=== PATIENT | male | born 1955 | race Hispanic/Latino ===

== ENCOUNTER 2017-11-08 22:43 | Inpatient (IN) | payer OTHER, MEDICARE ==
[~2017-11-08] VITALS: Ht 160 cm; Wt 70.8 kg
[~2017-11-08 22:43] MED LIST: AMLODIPINE BESY10 M1 PO; BACTRIM DS 8001 TAB PO; BENTYL20 MG PO; CLOPIDOGREL75 M1 PO; COLCHICINE0.6 M2 PO; FLOMAX0.4 M1 PO; FLU VACCINE 0.0.5 ML IM; GEMFIBROZIL600 M1 PO; GLIPIZIDE10 M2 PO; HYDROCHLOROTHIA25 M1 PO; JANUVIA 100MG100 MG PO; KEFLEX500 M1 PO; LABETALOL HCL300 M1 PO; LANTUS SOL100 UNIT/1 SC; LIPITOR20 M2 PO; PANTOPRAZOLE SO40 M1 PO; PREDNISONE2.5 M1 PO; PROGRAF0.5 MG PO; RAPAMUNE1 MG PO; ZOFRAN ODT4 MG SL
[2017-11-08 23:13] LABS: ABSOLUTE BASOPHIL COUNT 0 /CUMM (0.0-0.2); ABSOLUTE EOSINOPHIL COUNT 0.2 /CUMM (0.0-0.7); ABSOLUTE GRANULOCYTE CT 4.6 /CUMM (1.4-6.5); ABSOLUTE LYMPH COUNT 2.7 /CUMM (1.2-3.4); ABSOLUTE MONOCYTE COUNT 0.9 /CUMM (0.10-0.60); BASOPHIL % 0.3 % (0.0-2.0); EOSINOPHIL % 2.3 % (0-5); GRANULOCYTE % 54.7 % (42.2-75.2); HEMATOCRIT 35.2 % (42-52); MEAN CORPUSCULAR HGB 25.9 PG (27.0-31.0); MEAN CORPUSCULAR HGB CONC 32.6 G/DL (33.0-37.0); MEAN CORPUSCULAR VOLUME 79.5 FL (80.0-94.0); MEAN PLATELET VOLUME 10.5 FL (7.4-10.4); PLATELET COUNT 213 /CUMM (130-400); RBC DISTRIBUTION WIDTH 15.8 % (11.5-14.5); RED BLOOD CELL CT 4.43 /CUMM (4.70-6.10); WHITE BLOOD CELL COUNT 8.5 /CUMM (4.8-10.8)
--- NOTE | 2017-11-08 23:18 | ED CARDIAC/CP/PALPITATIONS ---
History of Present Illness General Chief Complaint: Chest Pain Stated Complaint: CP Source: patient, family, old records Exam Limitations: no limitations Vital Signs & Intake/Output Vital Signs & Intake/Output Vital Signs Date Time Temp Pulse Resp B/P B/P Pulse O2 O2 Flow FiO2 Mean Ox Delivery Rate 11/08 2349 64 16 162/80 97 Room Air 11/08 2325 148/84 11/08 2258 98 Room Air 11/08 2255 96.2 67 18 176/87 97 Room Air ED Intake and Output 11/09 0000 11/08 1200 Intake Total Output Total Balance Patient 150 lb Weight Allergies Coded Allergies: Penicillins (UNKNOWN 01/08/16) Reconcile Medications Amlodipine Besylate (Amlodipine) 10 MG TABLET 1 TAB PO DAILY BP (Reported) Atorvastatin Calcium (Lipitor) 20 MG TABLET 1 TAB PO DAILY CHOLESTEROL ( Reported) Cephalexin (Keflex) 500 MG CAPSULE 1 CAP PO TID CELLULITIS CLOPIDOGREL BISULFATE (Clopidogrel) 75 MG TABLET 1 TAB PO DAILY BLOOD THINNER (Reported) Colchicine 0.6 MG TABLET 1 TAB PO BID GOUT Gemfibrozil 600 MG TABLET 1 TAB PO DAILY CHOLESTEROL (Reported) Glipizide 10 MG TABLET 1 TAB PO QPM DIABETES (Reported) Hydrochlorothiazide (Hydrodiuril 25 MG Tab) 25 MG TABLET 1 TAB PO DAILY BP ( Reported) Insulin Glargine,Hum.rec.anlog (Lantus Solostar) 100 UNIT/1 ML INSULN.PEN 14 U SC DAILY DIABETES (Reported) Insulin Glargine,Hum.rec.anlog (Lantus Solostar) 100 UNIT/1 ML INSULN.PEN 16 UNIT SC QPM DIABETES (Reported) Labetalol Hydrochloride 300 MG TAB 1 TAB PO BID BP (Reported) Pantoprazole Sodium 40 MG TABLET.DR 1 TAB PO DAILY ACID REFLUX (Reported) Prednisone 2.5 MG TABLET 1 TAB PO DAILY KIDNEY TRANSPLANT (Reported) Sirolimus (Rapamune 1MG) 1 MG TABLET 1 TAB PO DAILY KIDNEY TRANSPLANT ( Reported) Sitagliptin Phosphate (Januvia) 100 MG TABLET 1 TAB PO DAILY DIABETES ( Reported) Tacrolimus 0.5 MG CAPSULE 1 TAB PO BID KIDNEY (Reported) TAMSULOSIN HCL (Tamsulosin Hydrochloride) 0.4 MG CAP.ER.24H 1 CAP PO DAILY PROSTATE (Reported) Triage Note: PT TO TRIAGE C/O L SIDED NONRADIATING CP SINCE THIS AFTERNOON, INTERMITTENT IN SEVERITY. DENIES SOB/ DIAPHORESIS. PT HX KIDNEY TRANSPLANT (2000) AND STENT PLACEMENT (2008). PT TO ROOM 4, PLACED ON VAMP WETTER. Triage Nurses Notes Reviewed? yes Onset: Evening Duration: hour(s):, constant, continues in ED Timing: recent history Quality/Severity: moderate, severe, tightness Location: substernal Radiation: arms Activities at Onset: rest Prior Chest Pain/Card Workup: cardiac cath, echocardiography, heart attack, stress test Nitro Today/Relief: 0.4 mg x 1, provided by ED Aspirin Today: 325 mg x 1, provided by ED HPI: Several hours prior to admission patient complains of constant moderate to severe left-sided tight chest pain radiating to his left arm similar to previous NM discomfort. He denies fever chills nausea vomiting diarrhea abdominal pain shortness of breath headache dysuria rash bleeding. Past History Travel History Traveled to [place] past 21 day No Medical History Any Pertinent Medical History? see below for history Neurological: NONE EENT: NONE Cardiovascular: hypertension, hyperlipidemia Respiratory: NONE Gastrointestinal: NONE Hepatic: NONE Renal: KIDNEY TRANSPLANT Musculoskeletal: NONE Psychiatric: NONE Endocrine: diabetes Blood Disorders: NONE Cancer(s): NONE BLOOD BANK LABORATORY TECHNOLOGIST/Reproductive: NONE Surgical History Surgical History: non-contributory Psychosocial History What is your primary language Emir[place] Tobacco Use: Never used Family History Hx Contributory? No Review of Systems Review of Systems Constitutional: Reports: no symptoms. EENTM: Reports: no symptoms. Respiratory: Reports: no symptoms. Cardiovascular: Reports: see HPI, chest pain. GI: Reports: no symptoms. Genitourinary: Reports: no symptoms. Musculoskeletal: Reports: no symptoms. Skin: Reports: no symptoms. Neurological/Psychological: Reports: no symptoms. Hematologic/Endocrine: Reports: no symptoms. Immunologic/Allergic: Reports: no symptoms. All Other Systems: Reviewed and Negative Physical Exam Physical Exam General Appearance: well developed/nourished, alert, awake, anxious, mild distress, obese Head: atraumatic, normal appearance Eyes: Bilateral: normal appearance, PERRL, EOMI. Ears, Nose, Throat: normal pharynx, normal ENT inspection, hearing grossly normal Neck: normal inspection, supple, full range of motion, no midline tenderness Respiratory: normal breath sounds, chest non-tender, no respiratory distress, quiet respiration, lungs clear Cardiovascular: regular rate/rhythm, normal peripheral pulses, norml femoral pulses equa Peripheral Pulses: 4+ carotid (R), 4+ carotid (L) Gastrointestinal: normal bowel sounds, soft, non-tender, no organomegaly Back: normal inspection, normal range of motion Extremities: normal inspection, normal capillary refill, pedal edema Neurologic/Psych: no motor/sensory deficits, awake, alert, oriented x 3, normal gait, normal mood/affect, hand turner II-XII nml as tested Reflexes: 2+: bicep (R), bicep (L). Skin: intact, normal color, warm/dry Lymphatic: no anterior cervical javier Core Measures ACS in differential dx? Yes CVA/TIA Diagnosis No Sepsis Present: No Sepsis Focused Exam Completed? No Progress Differential Diagnosis: AMI, costochondritis, hyperkalemia, pneumonia Plan of Care: Orders Procedure Date/time Status Consistent Carbohydrate 2 11/09 B Active OXYGEN SETUP (GEN) 11/09 12 Active Saline Lock 11/09 12 Active Admit to inpatient 11/09 12 Active Vital Signs 11/09 12 Active Activity/Ambulation 11/09 12 Active Code Status 11/09 12 Active EKG 11/09 0002 Active Add-on Test (ER Only) 11/08 2316 Active MAGNESIUM 11/08 2305 Active B-TYPE NATRIURETIC PEP (BNP) 11/08 230 Active TROPONIN LEVEL 11/08 230 Active COMPREHENSIVE METABOLIC PANEL 11/08 230 Active CBC WITHOUT DIFFERENTIAL 11/09 2303 Complete EKG 11/08 2244 Active Laboratory Tests 11/08/17 2305: Anion Gap 12, Estimated GFR 47 L, BUN/Creatinine Ratio 23.3, Glucose 301 H, Calcium 9.1, Magnesium 1.3 L, Total Bilirubin 0.5, AST 28, ALT 22, Alkaline Phosphatase 96, Troponin I 0.02, Bmn-F-Ojuplelqtzt Pept Pending, Total Protein 6.8, Albumin 4.0, Globulin 2.8, Albumin/Globulin Ratio 1.4, CBC w Diff NO MAN DIFF REQ, RBC 4.43 L, MCV 79.5 L, MCH 25.9 L, MCHC 32.6 L, RDW 15.8 H, MPV 10.5 H, Gran % 54.7, Lymphocytes % 32.0, Monocytes % 10.7 H, Eosinophils % 2.3 , Basophils % 0.3, Absolute Granulocytes 4.6, Absolute Lymphocytes 2.7, Absolute Monocytes 0.9 H, Absolute Eosinophils 0.2, Absolute Basophils 0 Diagnostic Imaging: Viewed by Me: Radiology Read. Discussed w/RAD: Radiology Read. Initial ED EKG: normal axis, normal intervals, normal p-waves, normal QRS complex, normal sinus rhythm, nonspecific ST T wave chg, ST depression (V 4-6) Prior EKG: changed Repeat EKG: unchanged Rhythm Strip: normal sinus rhythm Departure Departure Time of Disposition: 16 Disposition: STILL A PATIENT Condition: Fair Clinical Impression Primary Impression: Chest pain syndrome Secondary Impressions: Chronic renal insufficiency, Hypokalemia, Hypomagnesemia Referrals: Larissa GATES,Norberto León (PCP/Family) Departure Forms: Customer Survey General Discharge Information Admission Note Spoke With: Yuliet Taveras MD Documentation of Exam: Documentation of any treatments & extenuating circumstances including Concerns Regarding Discharge (functional status, medication knowledge or non-compliance, living conditions, etc.) that warrant an admission rather than observation: Serial EKG serial lab exam medication adjustment cardiac monitoring cardiology evaluation continuing care discharge planning Critical Care Note Critical Care Note Critical Care Time: 30-74 min (35)
--- NOTE | 2017-11-08 23:45 | RADIOLOGY REPORT ---
EXAMINATION: XR PORTABLE CHEST CLINICAL INFORMATION: Chest pain COMPARISON: 07/14/2015 TECHNIQUE: Portable frontal view of the chest was obtained. FINDINGS: Cardiac leads overlie the chest. The patient is rotated to the left. The lungs are well expanded. There is no focal consolidation, edema, or effusion. No pneumothorax. The cardiomediastinal silhouette is within normal limits of size. No acute osseous abnormality. IMPRESSION: No acute pulmonary findings.
[2017-11-09] MEDS ORDERED: TRADJENTA5 M1 PO (01:35)
[2017-11-09] MEDS ORDERED: LEVEMIR100 UNIT/1 SC (01:36)
--- NOTE | 2017-11-09 01:43 | History & Physical ---
Collins GATES,Ramon 11/09/17 0142: General Information and HPI MD Statement: I have seen and personally examined WALDEMAR RAYGOZA and documented this H&P. The patient is a 62 year old M who presented with a patient stated chief complaint of [chest pain]. Source of Information: patient, family, old records Exam Limitations: no limitations History of Present Illness: Patient is a 62-year-old male with past medical history of CAD status post UT and stent of the right coronary artery in 2008 currently only on Plavix (stopped aspirin due to nosebleeds), renal failure likely secondary to uncontrolled blood pressure status post renal transplant (first in 1992, after rejection second in 2000) currently on prednisone, tacrolimus and sirolimus, history of HTN, HLD, DM , Gout, BPH, GERD presenting this admission with chief complaint of chest pain. Patient states that he returned from work today, ate dinner and went to bed early. States that at approximately 7 PM he started having chest pain which he describes as a crushing pain/tightness located in his left chest that radiates down his left arm. Patient reports that the pain started while he was at rest and did not change with movement. Patient rates the pain as 7 out of 10 in severity. Associated symptoms include palpitations and difficulty breathing. Patient denies any nausea/vomiting, diaphoresis, lightheadedness, dizziness. Patient reports that other than his prescribed medications he did not take anything for the pain. Patient in the ED received nitroglycerin which he states has resolved his chest pain however continues to have left arm pain. 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 Patient states that these symptoms are similar to his presentation in 2008 when he had a heart attac requiring 1 stent. Patient is currently on clopidogrel 75 mg. He stopped taking aspirin due to recurrent nosebleeds. Patient was last seen by machine or machinery mechanic (Dr. Ramirez) in 2016 when he reports he had an echo and stress test done. Patient denies any fever, chills, nausea/vomiting, abdominal pain, diarrhea/ constipation, cough, dysuria/hematuria over the past few weeks. Past medical history: As above Past surgical history: Renal transplant, stent Social history: Patient lives with his , and work entails manual labor, quit smoking in 1999, previously smoking 1 pack per day for 30 years, occasional alcohol use, denies any illicit drug use Family history: Mother had abdominal aneurysm, father had an enlarged heart, bladder cancer Allergies: Penicillin (rash) Medications: Tamsulosin 0.4 mg daily, gemfibrozil 600 mg daily, prednisone 2.5 mg daily, clopidogrel 75 mg daily, atorvastatin 20 mg daily, amlodipine 10 mg daily, Tradjenta, labetalol 300 mg twice a day glipizide 10 mg daily, tacrolimus 0.5 mg twice a day, hydrochlorothiazide 25 mg, sirolimus 1 mg daily, Levemir 22 units in the morning and 26 units at night, omeprazole 20 mg daily, potassium supplement In the ED patient received magnesium 400 mg 1, potassium 40 mEq 1, nitroglycerin sublingual 0.41, nitroglycerin 1 g topical, aspirin 325 mg 1 Allergies/Medications Allergies: Coded Allergies: Penicillins (UNKNOWN 01/08/16) Home Med list Amlodipine Besylate 10 MG TABLET 1 TAB PO DAILY HEART (Reported) Aspirin (Aspirin*) 81 MG TAB.CHEW 1 TAB PO DAILY CAD/ACS Atorvastatin Calcium (Lipitor) 20 MG TABLET 1 TAB PO DAILY CHOLESTEROL ( Reported) Clopidogrel Bisulfate (Clopidogrel) 75 MG TABLET 1 TAB PO DAILY BLOOD THINNER (Reported) Gemfibrozil 600 MG TABLET 1 TAB PO DAILY CHOLESTEROL (Reported) Glipizide 10 MG TABLET 1 TAB PO QPM DIABETES (Reported) Heparin Sod,Porcine/0.9 % NaCl (Heparin-Ns 25,000 Units/250 Ml) 25,000 UNIT/250 ML (100 UNIT/ML) IV.SOLN 1 BAG IV ONCE ACS / UA Hydrochlorothiazide 25 MG TABLET 1 TAB PO DAILY BP (Reported) Insulin Detemir (Levemir) 100 UNIT/ML VIAL 0 SC BID DM (Reported) 22 QAM 26 QPM Labetalol HCl 300 MG TABLET 1 TAB PO BID BP (Reported) Linagliptin (Tradjenta) 5 MG TABLET 1 TAB PO DAILY DM (Reported) Pantoprazole Sodium 40 MG TABLET.DR 1 TAB PO DAILY ACID REFLUX (Reported) Prednisone 2.5 MG TABLET 1 TAB PO DAILY KIDNEY TRANSPLANT (Reported) Sirolimus (Rapamune) 1 MG TABLET 1 TAB PO DAILY KIDNEY TRANSPLANT (Reported) Tacrolimus (Prograf) 0.5 MG CAPSULE 1 CAP PO BID TRANSPLANT (Reported) Tamsulosin HCl (Flomax) 0.4 MG CAP.ER.24H 1 CAP PO DAILY PROSTATE (Reported) Past History Travel History Traveled to [place] past 21 day No Medical History Neurological: NONE EENT: NONE Cardiovascular: hypertension, hyperlipidemia Respiratory: NONE Gastrointestinal: NONE Hepatic: NONE Renal: KIDNEY TRANSPLANT Musculoskeletal: NONE Psychiatric: NONE Endocrine: diabetes Blood Disorders: NONE Cancer(s): NONE COMMERCIAL REAL ESTATE BROKER/Reproductive: NONE Surgical History Surgical History: non-contributory Review of Systems Review of Systems Constitutional: Reports: see HPI. Cardiovascular: Reports: see HPI. Respiratory: Reports: see HPI. GI: Reports: no symptoms. Genitourinary: Reports: no symptoms. Musculoskeletal: Reports: no symptoms. Skin: Reports: no symptoms. Neurological/Psychological: Reports: no symptoms. Hematologic/Endocrine: Reports: no symptoms. Immunologic/Allergic: Reports: no symptoms. Exam & Diagnostic Data Last 24 Hrs of Vital Signs/I&O Vital Signs Date Time Temp Pulse Resp B/P B/P Pulse O2 O2 Flow FiO2 Mean Ox Delivery Rate 11/08 2349 64 16 162/80 97 Room Air 11/08 2325 148/84 11/08 2258 98 Room Air 11/08 225 96.2 67 18 176/87 97 Room Air Intake & Output 11/09 0800 11/09 0000 11/08 1600 Intake Total 240 Output Total 200 Balance 40 Intake, Oral 240 Output, Urine 200 Patient 150 lb Weight Physical Exam General Appearance Alert, Oriented X3, Cooperative, No Acute Distress Skin No Rashes Skin Temp/Moisture Exam: Warm/Dry Sepsis Skin Exam (color): Normal for Ethnicity HEENT Atraumatic, PERRLA, EOMI, Mucous Membr. moist/pink Neck Supple, No JVD, +2 Carotid Pulse wo Bruit, No LAD Lymphatic Cervical nl Cardiovascular Regular Rate, Normal S1, Normal S2, No Murmurs Lungs Clear to Auscultation, Normal Air Movement Abdomen Normal Bowel Sounds, Soft, No Tenderness, small area of ecchymosis on RUQ (patient unsure where its from, denies trauma) Neurological Normal Speech, Strength at 5/5 X4 Ext, Normal Tone, Sensation Intact, Cranial Nerves 3-12 NL Extremities No Clubbing, No Cyanosis, Normal Pulses, No Tenderness/Swelling, 1+ bilateral lower extremity pitting edema Vascular Normal Pulses, Pulses Symmetrical Last 24 Hrs of Labs/Michel: Laboratory Tests 11/08/17 2305: Anion Gap 12, Estimated GFR 47 L, BUN/Creatinine Ratio 23.3, Glucose 301 H, Hemoglobin A1c Pending, Calcium 9.1, Phosphorus 3.4, Magnesium 1.3 L, Total Bilirubin 0.5, AST 28, ALT 22, Alkaline Phosphatase 96, Troponin I 0.02, Pro-B- Natriuretic Pept 169 H, Total Protein 6.8, Albumin 4.0, Globulin 2.8, Albumin/ Globulin Ratio 1.4, TSH Pending, Free T4 0.84, CBC w Diff NO MAN DIFF REQ, RBC 4.43 L, MCV 79.5 L, MCH 25.9 L, MCHC 32.6 L, RDW 15.8 H, MPV 10.5 H, Gran % 54.7, Lymphocytes % 32.0, Monocytes % 10.7 H, Eosinophils % 2.3, Basophils % 0.3, Absolute Granulocytes 4.6, Absolute Lymphocytes 2.7, Absolute Monocytes 0.9 H, Absolute Eosinophils 0.2, Absolute Basophils 0 Diagnostic Data CXR Results No acute cardiopulmonary process Assessment/Plan Assessment: Patient is a 62-year-old male with past medical history of CAD status post UT and stent of the right coronary artery in 2008 currently only on Plavix (stopped aspirin due to nosebleeds), renal failure likely secondary to uncontrolled blood pressure status post renal transplant (first in 1992, after rejection second in 2000) currently on prednisone, tacrolimus and sirolimus, history of HTN, HLD, DM , Gout, BPH, GERD presenting this admission with chief complaint of chest pain. Patient will be admitted to telemetry for management of the followin. Unstable angina - patient's EMILY score is 3, giving him a 13% risk at 14 days of all cause mortality, cardiac event including ischemia requiring urgent revascularization. 2. CAD s/p UT and stent on plavix 3. Hypokalemia, Hypomagnesemia - repleted in ED 4. History of Renal Transplant, on immunosuppressants (prednisone, tacrolimus, sirolimus) 5. History of DM, HTN, HLD, BPH, Gout, GERD Plan: Admmit to telemetry Cardiology consult with Dr. Ramirez Serial EKG and Troponin ECHO Follow up TSH, lipid profile, HgbA1c Continue morphine, nitro for chest pain as needed Supplemental oxygen as needed Received aspirin 325mg x 1 today, continue aspirin and plavix Nephrology consult for renal transplant Continue to monitor electrolytes, renal function Avoid nephrotoxic agents Continue home medications except for oral hypoglycemic agents Insulin SS with Accucheck NPO pending possible cardiac cath pending serial EKG and trops and cardiology evaluation Code: Full code DVT PPx: heparin SQ, ALPS As Ranked By This Provider Problem List: 1. Chest pain syndrome 2. Hypokalemia 3. Hypomagnesemia 4. Renal transplant, status post 5. Chronic renal insufficiency 6. Diabetes Core Measures/Misc (03/26) Acute Coronary Syndrome ACS Diagnosis: No Congestive Heart Failure Congestive Heart Failure Diagnosis No Cerebrovascular Accident CVA/TIA Diagnosis: No VTE (View Protocol) VTE Risk Factors Age>40 No Mechanical VTE Prophylaxis d/t N/A MechProphylax Ordered No VTE Pharm Prophylaxis d/t NA PharmProphylax ordered Sepsis (View protocol) Sepsis Present: No MarilyenriquetaSa herlindaud 11/09/17 0203: Resident Review Statement Resident Statement: examined this patient, discussed with international bank manager, agreed with international bank manager, discussed with family, reviewed EMR data (avail), discussed with nursing , discussed with case mgmt, reviewed images, amended to note Other Findings: This is a 62-year-old male with medical history of CAD status post UT and stent of the right coronary artery in 2008 currently only on Plavix (stopped aspirin due to nosebleeds), CKD stage 2 status post renal transplant (first in 1992, after rejection second in 2000) currently on prednisone, tacrolimus and sirolimus, HTN, HLD, DM, Gout, BPH, GERD. He presented to the ED with chief complaint of chest pain. HE stated that the chest pain started tonight around 7 pm it was crushing pain/tightness located in his left chest that radiates down his left arm. Patient reports that the pain started while he was at rest and did not change with movement. Patient rates the pain as 7 out of 10 in severity , also associated with palpitations and difficulty breathing. He stated it is similar to his previous UT that was in 2008. He stated that the pain relieved in the ED after he received sublingual nitroglycerin in the full dose of aspirin, also due to his High BP Nitro patch placed for him. the EKG showed non specific changes comparing with 2014 one. He has Hypokalemia, Hypomagnesemia. He stated that last time he saw Dr. Ramirez was 2 yeas ago, he did not had any recent Echo or stress test. Physical examination, lab and imaging as above EMILY score is = 3 Problem list: -Unstable angina -Hypokalemia, Hypomagnesemia -CKD status post renal transplant currently on suppression treatment. Plan: -Admit patient to telemetry floor -Vitals every shift -Serial troponin and EKG -Obtain echocardiogram -Cardiology consultation in a.m. -Continue aspirin 81 mg also continue his home dose of Plavix. -Replete potassium and magnesium -Obtain TSH, free T4, hemoglobin A1c, phosphorus -Accu-Chek, insulin sliding scale, continue Levemir -Keep patient nothing by mouth midnight. -Hold oral antidiabetic otherwise Continue his home medication -Nephrology consultation in a.m. -Pain pathway -DVT prophylaxis subcutaneous heparin -Full code Nitin GATES, [facility] 11/09/17 0542: Attending MD Review Statement Attending Statement Attending MD Statement: examined this patient, discuss w/resident/PA/[employer], agreed w/resident/PA/[employer]ER, discussed with family, reviewed images, amended to note Attending Assessment/Plan: 62 yo M with h/o UT s/p RCA stent (2008), HTN, DM, CKD s/p right renal transplant by living related donor (1992, 2000) currently on immunosuppressive therapy, is brought in for evaluation of chest pain. Patient reports left sided chest crushing pressure sensation radiating to left arm, associated with palpitations and dyspnea, that started at around 7 pm. He was resting at that point, with no prior exertional activity. His symptoms seem similar to his UT. The chest pressure was relieved after receiving nitro in the ER. He still continues to have left arm pain. He follows with Dr. Ramirez (last saw him in 2016), no recent echo or stress test. He follows with [facility] transplant clinic. Vitals stable. Exam as above. Labs: microcytic anemia, Na 135, K 3.1, BUN 25, creat 1.5 (baseline), glucose 301, Mag 1.3, trop neg. ProBNP 169. CXR: no acute abnormality. EKG: sinus rhythm, with normalization of previously seen T-wave flattening/ inversions in V2-4. LVH, Qtc 507. Assessment and plan: 1. Unstable angina 2. History of CAD s/p RCA stent 3. History of renal transplant currently on immunosuppressive therapy 4. Essential hypertension 5. Type 2 diabetes on insulin 6. Diabetic neuropathy 7. Hypokalemia and hypomagnesemia - Admit to Telemetry - Serial EKG and troponin - Obtain echocardiogram - Cardio consult - Consider inpatient stress test if troponins remain negative - Patient has had nosebleeds with aspirin, he received 325 mg aspirin in the ER - Continue aspirin for now but will be watchful for any epistaxis - Continue plavix, nitropaste, oxygen supplementation - Continue labetalol and statin therapy - Diabetes management consider Endo consult if sugars remain high, check HbA1c - Continue prednisone, tacrolimus and sirolimus immunosuppressive therapy - Consult nephrology - Replete electrolytes - Check TSH, free T4, lipid panel - NPO after midnight DVT ppx Hep SC. Full code.
[2017-11-09 02:06] VITALS: BP 156/76
--- NOTE | 2017-11-09 05:43 | Admission Certification ---
Admission Certification Certification Statement - As attending physician, I certify that at the time of - admission, based on clinical presentation, severity of - symptoms, need for further diagnostic testing and - therapeutic interventions, and risk of adverse outcomes - without in-hospital treatment, in my clinical assessment, - this patient requires an acute hospital stay for a minimum - of two nights or longer. I have also considered psychsocial - factors such as support system, advanced age, financial - issues, cognitive issues, and failed out-patient treatments, - past re-admission history, safety of patient, and lack of - compliance as applicable. Specific rationale supporting this admission is: Unstable angina.
[2017-11-09 06:53] VITALS: BP 128/76; BP 144/82
--- NOTE | 2017-11-09 07:27 | PN- Housestaff ---
Wing GATES,Jose Armando 11/09/17 0727: Subjective Follow-up For: NSTEMI Tele-Events Since Last Visit: sinus rhythm, no events Subjective: patient continues to have some left sided chest pain, radiating to the left shoulder no dyspnea, palpitations, nausea or diaphoresis Review of Systems Constitutional: Reports: see HPI. Objective Last 24 Hrs of Vital Signs/I&O Vital Signs Date Time Temp Pulse Resp B/P B/P Pulse O2 O2 Flow FiO2 Mean Ox Delivery Rate 11/09 0909 62 144/82 11/09 0909 62 144/82 11/09 0908 62 144/82 11/09 0653 97.9 62 18 144/82 96 Room Air 11/09 0206 97.9 59 18 156/76 96 Room Air 11/08 2349 64 16 162/80 97 Room Air 11/08 2325 148/84 11/08 2258 98 Room Air 11/08 2255 96.2 67 18 176/87 97 Room Air Intake & Output 11/09 1600 11/09 0800 11/09 0000 Intake Total 290 Output Total 200 Balance 90 Intake, Oral 290 Output, Urine 200 Patient 70.76 kg 68.039 kg Weight Weight Bed scale Measurement Method Physical Exam General Appearance: Alert, Oriented X3, Cooperative, No Acute Distress Neck: Supple, No JVD Cardiovascular: Regular Rate, Normal S1, Normal S2, No Murmurs Lungs: Clear to Auscultation, Normal Air Movement Abdomen: Normal Bowel Sounds, Soft, No Tenderness, No Masses, palpable left renal transplant Extremities: No Clubbing, No Cyanosis, Normal Pulses, trace bilateral lower extremity edema Current Medications: Current Medications Sig/Fei Start time Last Medication Dose Route Stop Time Status Admin Acetaminophen 650 MG Q6P PRN 11/09 0100 AC PO Amlodipine Besylate 10 MG DAILY 11/09 899 AC 11/09 PO 0909 Aspirin 81 MG DAILY 11/09 899 AC 11/09 PO 0907 Aspirin 325 MG ONCE ONE 11/08 2329 DC 11/08 PO 11/08 2331 2326 Aspirin 0 .STK-MED ONE 11/08 2328 DC PO Atorvastatin Calcium 20 MG 1700 11/09 1700 AC PO Clopidogrel Bisulfate 75 MG DAILY 11/09 0900 AC 11/09 PO 0909 Dextrose 25 GM ONCE ONE 11/09 0645 DC 11/09 IV 11/09 0646 0650 Dextrose/Sodium 1,000 ML Q13H 11/09 0645 AC 11/09 Chloride IV 11/09 1944 0650 Gemfibrozil 600 MG DAILY 11/09 0900 AC 11/09 PO 0908 Heparin Sodium 25,000 UNIT Q24H 11/09 0930 AC 11/09 (Porcine) IV 1049 Sodium Chloride 500 ML Heparin Sodium 5,000 UNIT Q8 11/09 0600 DC 11/09 (Porcine) SC 0627 Hydrochlorothiazide 25 MG DAILY 11/09 0900 AC 11/09 PO 0908 Insulin Aspart 0 TIDAC 11/09 0800 CAN SC Insulin Detemir 26 UNITS QPM 11/09 2100 CAN SC Insulin Detemir 12 UNITS BID 11/09 0930 AC 11/09 SC 1056 Insulin Detemir 22 UNITS QAM 11/09 0900 DC SC Insulin Human Regular 0 Q6 11/09 0128 AC 11/09 SC 0133 Labetalol HCl 300 MG BID 11/09 0900 AC 11/09 PO 0909 Magnesium Oxide 400 MG BID 11/09 0900 AC 11/09 PO 11/10 0901 0908 Magnesium Oxide 400 MG ONE ONE 11/09 0015 DC 11/09 PO 11/09 0016 0011 Magnesium Sulfate 1 GM ONCE ONE 11/09 0915 AC Dextrose/Water 100 ML IV 11/09 1314 Morphine Sulfate 2 MG Q4P PRN 11/09 0100 AC IV Nitroglycerin 0.4 MG Q 5 MINUTES X 3 DO.. 11/09 1015 AC 11/09 SL 1055 Nitroglycerin 0 .STK-MED ONE 11/08 2359 DC TOP Nitroglycerin 1 GM ONCE ONE 11/08 2345 DC 11/08 TOP 11/08 2346 2346 Nitroglycerin 0.4 MG ONCE ONE 11/08 2330 DC 11/08 SL 11/08 2331 2326 Omeprazole 40 MG DAILY AC 11/09 0700 AC 11/09 PO 0625 Potassium Chloride 40 MEQ ONCE ONE 11/09 0900 DC 11/09 PO 11/09 0901 0908 Potassium Chloride 40 MEQ ONCE ONE 11/09 0900 CAN PO 11/09 1000 Potassium Chloride 0 .STK-MED ONE 11/09 0009 DC PO Potassium Chloride 40 MEQ ONCE ONE 11/08 2345 DC 11/09 PO 11/08 2346 0003 Sirolimus 1 MG DAILY 11/09 1005 AC PO Sodium Chloride 1,000 ML ONCE ONE 11/09 0615 DC 11/09 IV 11/09 1934 0625 Tacrolimus 0.5 MG Q12 11/09 1030 AC PO Tamsulosin HCl 0.4 MG DAILY 11/09 09 AC 11/09 PO 0908 Last 24 Hrs of Lab/Michel Results Last 24 Hrs of Labs/Mics: Laboratory Tests 11/09/17 0605: Anion Gap 11, Estimated GFR 56 L, BUN/Creatinine Ratio 21.5, Glucose 216 H, Magnesium 1.3 L, Troponin I 0.15 *H, Triglycerides 180 H, Cholesterol 177, LDL Cholesterol, Calc 91, HDL Cholesterol 50, Cholesterol/HDL Ratio 4, CBC w Diff NO MAN DIFF REQ, RBC 3.94 L, MCV 80.7, MCH 26.3 L, MCHC 32.6 L, RDW 15.4 H, MPV 10.8 H, Gran % 54.2, Lymphocytes % 30.2, Monocytes % 12.1 H, Eosinophils % 3.1 , Basophils % 0.4, Absolute Granulocytes 4.4, Absolute Lymphocytes 2.5, Absolute Monocytes 1.0 H, Absolute Eosinophils 0.2, Absolute Basophils 0 11/09/17 0600: Sodium Cancelled, Potassium Cancelled, Chloride Cancelled, Carbon Dioxide Cancelled, Anion Gap Cancelled, BUN Cancelled, Creatinine Cancelled, BUN/ Creatinine Ratio Cancelled, CBC w Diff Cancelled, WBC Cancelled, RBC Cancelled, Hgb Cancelled, Hct Cancelled, MCV Cancelled, MCH Cancelled, MCHC Cancelled, RDW Cancelled, Plt Count Cancelled, MPV Cancelled 11/08/17 2305: Anion Gap 12, Estimated GFR 47 L, BUN/Creatinine Ratio 23.3, Glucose 301 H, Hemoglobin A1c 7.9 H, Calcium 9.1, Phosphorus 3.4, Magnesium 1.3 L, Total Bilirubin 0.5, AST 28, ALT 22, Alkaline Phosphatase 96, Troponin I 0.02, Pro-B- Natriuretic Pept 169 H, Total Protein 6.8, Albumin 4.0, Globulin 2.8, Albumin/ Globulin Ratio 1.4, TSH 6.820 H, Free T4 0.84, CBC w Diff NO MAN DIFF REQ, RBC 4.43 L, MCV 79.5 L, MCH 25.9 L, MCHC 32.6 L, RDW 15.8 H, MPV 10.5 H, Gran % 54.7, Lymphocytes % 32.0, Monocytes % 10.7 H, Eosinophils % 2.3, Basophils % 0.3, Absolute Granulocytes 4.6, Absolute Lymphocytes 2.7, Absolute Monocytes 0.9 H, Absolute Eosinophils 0.2, Absolute Basophils 0 Orders EKG Findings: worsening inferolateral ST depressions Assessment/Plan Assessment: 62 year old male with past medical history significant for CAD with NC s/p RCA stent in 2008 on Plavix (stopped aspirin due to nosebleeds), chronic renal failure with h/o HTN/DM s/p bilateral kidney transplants (right kidney 1992, left kidney in 2000) currently on prednisone, tacrolimus and sirolimus, presented with complaints of left sided chest pain associated palpitations and dyspnea similiar to 2008 NC CAD s/p RCA stent with acute NSTEMI: No events on telemetry 12 lead EKG showing worsening ischemic changes inferolateral ST depression Troponins increasing 0.02->0.15, continue to trend Intravenous heparin gtt started Cardiology consulted, appreciate recommendations Check an echocardiogram Add sublingual nitroglycerin for persistent symptoms in addition to nitropaste and morphine Given aspirin 325mg, continue plavix Continue labetalol and atorvastatin Doesn't appear to take an ACEi as an outpatient Hypokalemia and Hypomagnesemia-repleted Will likely be transferred for cardiac catheterization History of Renal Transplantation: Continue immunosuppressants (prednisone, tacrolimus, sirolimus) Nephrology consultation DM: Reportedly became hypoglycemic overnight to blood sugar of 50 althought not documented Received 1 ampule of dextrose and started D5NS Levemir dose reduced to 12 units BID subcutaneous while NPO Continue accuchecks, currently 190-210 Continue regular insulin Q6H Holding oral hypoglycemic agents HTN: Continue labetalol, norvasc HLD: Continue statin therapy GERD: PO PPI NPO pending cardiac catheterization DVT ppx-on heparin gtt Full code Plan to transfer to [facility] with Dr. King for cardiac catheterization Problem List: 1. NSTEMI (non-ST elevated myocardial infarction) 2. Diabetes Pain Ratin Pain Location: left chest Pain Goal: Pain 4 or less Pain Plan: nitro/morphine Tomorrow's Labs & Rationales: none, probable transfer Lynda Burden MD 11/09/17 1040: Attending MD Review Statement Attending Statement Attending MD Statement: examined this patient, discuss w/resident/PA/WILDLIFE PHOTOGRAPHER, agreed w/resident/PA/WILDLIFE PHOTOGRAPHER, reviewed EMR data (avail) Attending Assessment/Plan: 62M PMH CAD status post NC and stent of the right coronary artery in 2008 currently only on Plavix (stopped aspirin due to nosebleeds), renal failure likely secondary to uncontrolled blood pressure status post renal transplant ( first in 1992, after rejection second in 2000) currently on prednisone, tacrolimus and sirolimus, history of HTN, HLD, DM, Gout, BPH, GERD admitted with left sided chest pain at rest with T-wave inversions in inferolateral leads and elevated troponin 0.15. Patient currently has mild left sided chest pain, denies SOB, diaphoresis. He reports palpitations. Last cardiac stent was in 2008. 1. NSTEMI 2. History of renal transplant 3. Acute EKG changes Plan - Continue on telemetry - Heparin drip - Continue ASA and Plavix - Continue Nitropaste, start SL nitro - Morphine PRN - Continue home medications - DVT PPx - Likely transfer today for cardiac catheterization
[2017-11-09 08:12] LABS: ABSOLUTE BASOPHIL COUNT 0 /CUMM (0.0-0.2); ABSOLUTE EOSINOPHIL COUNT 0.2 /CUMM (0.0-0.7); ABSOLUTE GRANULOCYTE CT 4.4 /CUMM (1.4-6.5); ABSOLUTE LYMPH COUNT 2.5 /CUMM (1.2-3.4); BASOPHIL % 0.4 % (0.0-2.0); EOSINOPHIL % 3.1 % (0-5); GRANULOCYTE % 54.2 % (42.2-75.2); HEMATOCRIT 31.8 % (42-52); MEAN CORPUSCULAR HGB 26.3 PG (27.0-31.0); MEAN CORPUSCULAR HGB CONC 32.6 G/DL (33.0-37.0); MEAN CORPUSCULAR VOLUME 80.7 FL (80.0-94.0); MEAN PLATELET VOLUME 10.8 FL (7.4-10.4); PLATELET COUNT 184 /CUMM (130-400); RBC DISTRIBUTION WIDTH 15.4 % (11.5-14.5); RED BLOOD CELL CT 3.94 /CUMM (4.70-6.10); WHITE BLOOD CELL COUNT 8.2 /CUMM (4.8-10.8)
[2017-11-09 09:09] VITALS: BP 144/82
--- NOTE | 2017-11-09 09:49 | Discharge Summary ---
Visit Information Visit Dates Admission Date: 11/09/17 Discharge Date: 11/09/17 Hospital Course Course Attending Physician: Lynda Burden MD Primary Care Physician: Norberto Dias MD Hospital Course: 62-year-old man with past medical history of coronary artery disease/myocardial infarction status post RCA stent (2008) on Plavix, renal failure status post transplant on prednisone/tacrolimus/sirolimus, hypertension, hyperlipidemia, insulin-dependent diabetes mellitus, gout, BPH, and GERD seen for evaluation of chest pain. Patient reported acute onset left chest crushing chest pain/tightness around 7 PM the day prior to admission radiating down his left arm. The pain started at rest and did not change with movement. The pain was rated as a 7/10 with associated palpitations and shortness of breath but otherwise denied any nausea/ vomiting, sweats, lightheadedness, or dizziness. For further evaluation of the symptoms he contacted EMS and came to the [facility]. En route to the ED he received sublingual nitroglycerin that dramatically improved his pain. In the ED patient received more nitroglycerin electrolyte supplements, and full strength aspirin. ED course -Vital signs: Temperature 96.2, HR 64-67, RR 16-18, SBP 148-176, O2 97-98% on room air -CBC: WBC 8.5, hemoglobin 11.5, hematocrit 35.2, platelet 213 -BMP: Sodium 135, potassium 3.1, chloride 98, CO2 24, urea 35, creatinine 1.5, anion gap 12, glucose 301 -LFT: AST 28, ALT 22, ALP 96, total bilirubin 0.5 -Miscellaneous: Troponin I 0.02, proBNP 169 -EKG: Normal sinus rhythm with old T-wave flattening/inversion in V2-4 -CXR: No acute pulmonary findings Problem list on admission -Chest pain, probable unstable angina -Elevated creatinine -Hypokalemia/hypomagnesemia -History of myocardial infarction status post RCA stent (2008) -History of renal failure status post transplant, on prednisone/tacrolimus/ sirolimus -Insulin-dependent diabetes mellitus -Hypertension -Hyperlipidemia -BPH -Gout -GERD Hospital course Patient was kept nothing by mouth and admitted to the telemetry floor and serial EKG/troponin were obtained. Second EKG demonstrated worsening of the previously seen flattened/inverted T waves in the distal precordial leads with troponin increasing from 0.02 to 0.15. This was discussed with sales assistant entertainment and media Dr. Camilo Valle whom agreed with starting intravenous heparin and transfer for cardiac catheterization. Echocardiogram was obtained prior to discharge, formal read pending. Patient is being transferred to [facility] under the care of Dr. King for further cardiac evaluation. Allergies: Coded Allergies: Penicillins (UNKNOWN 01/08/16) Significant Procedures: SERVICE DATE: 11/08/17 EXAM TYPE: RAD - XRY-PORTABLE CHEST XRAY IMPRESSION: No acute pulmonary findings. Disposition Summary Disposition Principal Diagnosis: Chest pain, probable unstable angina Additional Diagnosis: Hypokalemia/hypomagnesemia -Elevated creatinine Discharge Disposition: other general hospital Discharge Instructions General Discharge Information Code Status: Full Code Patient's Diet: N.p.o. Patient's Activity: As tolerated Follow-Up Instructions/Appts: You are being transferred to [facility] for cardiac catheterization. Medications at Discharge Discharge Medications: Continue taking these medications: Amlodipine Besylate (Amlodipine Besylate) 10 MG TABLET 1 Tablet ORAL DAILY Comments: Last Taken: 11/09/17 Time: 0900 Atorvastatin Calcium (Lipitor) 20 MG TABLET 1 Tablet ORAL DAILY Comments: NOT GIVEN IN HOSPITAL Clopidogrel Bisulfate (Clopidogrel) 75 MG TABLET 1 Tablet ORAL DAILY Comments: Last Taken: 11/09/17 Time: 0900 Gemfibrozil (Gemfibrozil) 600 MG TABLET 1 Tablet ORAL DAILY Comments: Last Taken: 11/09/17 Time: 0900 Glipizide (Glipizide) 10 MG TABLET 1 Tablet ORAL Every night Comments: NOT GIVEN IN HOSPITAL Hydrochlorothiazide (Hydrochlorothiazide) 25 MG TABLET 1 Tablet ORAL DAILY Labetalol HCl (Labetalol HCl) 300 MG TABLET 1 Tablet ORAL TWICE DAILY Pantoprazole Sodium (Pantoprazole Sodium) 40 MG TABLET.DR 1 Tablet ORAL DAILY Prednisone (Prednisone) 2.5 MG TABLET 1 Tablet ORAL DAILY Sirolimus (Rapamune) 1 MG TABLET 1 Tablet ORAL DAILY Tacrolimus (Prograf) 0.5 MG CAPSULE 1 Capsule ORAL TWICE DAILY Tamsulosin HCl (Flomax) 0.4 MG CAP.ER.24H 1 Capsule ORAL DAILY Linagliptin (Tradjenta) 5 MG TABLET 1 Tablet ORAL DAILY Days = 28 Insulin Detemir (Levemir) 100 UNIT/ML VIAL 0 Inject into fatty tissue TWICE DAILY Days = 30 Instructions: 22 QAM 26 QPM Start taking the following new medications: Heparin Sod,Porcine/0.9 % NaCl (Heparin-Ns 25,000 Units/250 Ml) 25,000 UNIT/250 ML (100 UNIT/ML) IV.SOLN 1 Bag INTRAVEN GIVE ONCE Qty = 1 No Refills Aspirin (Aspirin*) 81 MG TAB.CHEW 1 Tablet ORAL DAILY Qty = 30 No Refills Copies To: Larissa GATES,Norberto León; Ashley GATES,Jesica Melton
--- NOTE | 2017-11-09 10:18 | Cons- Cardiology ---
General Information and HPI Consulting Request Date of Consult: 11/09/17 Requested By: Lynda Burden MD Reason for Consult: CAD, chest pain, positive troponin History of Present Illness: The patient is a 62-year-old male with history of CAD, status post myocardial infarction in 2008 with RCA stent, diabetes mellitus, end-stage renal disease status post renal transplant 2. Last night after dinner he developed substernal chest tightness radiating to his left arm which was a 7 out of 10 in severity. He presented to the emergency department where the pain initially responded to nitroglycerin, and then reoccurred. He sees Dr. Ramirez in the office, however he apparently has not followed up since 2016. He notes that he is chest pain has recurred, and is currently a 5 out of 10. No shortness of breath. No diaphoresis. No palpitations. No nausea or vomiting. 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 He takes Plavix as an outpatient, however he discontinued aspirin because of epistaxis. Allergies/Medications Allergies: Coded Allergies: Penicillins (UNKNOWN 01/08/16) Home Med List: Amlodipine Besylate 10 MG TABLET 1 TAB PO DAILY HEART (Reported) Aspirin (Aspirin*) 81 MG TAB.CHEW 1 TAB PO DAILY CAD/ACS Atorvastatin Calcium (Lipitor) 20 MG TABLET 1 TAB PO DAILY CHOLESTEROL ( Reported) Clopidogrel Bisulfate (Clopidogrel) 75 MG TABLET 1 TAB PO DAILY BLOOD THINNER (Reported) Gemfibrozil 600 MG TABLET 1 TAB PO DAILY CHOLESTEROL (Reported) Glipizide 10 MG TABLET 1 TAB PO QPM DIABETES (Reported) Heparin Sod,Porcine/0.9 % NaCl (Heparin-Ns 25,000 Units/250 Ml) 25,000 UNIT/250 ML (100 UNIT/ML) IV.SOLN 1 BAG IV ONCE ACS / UA Hydrochlorothiazide 25 MG TABLET 1 TAB PO DAILY BP (Reported) Insulin Detemir (Levemir) 100 UNIT/ML VIAL 0 SC BID DM (Reported) 22 QAM 26 QPM Labetalol HCl 300 MG TABLET 1 TAB PO BID BP (Reported) Linagliptin (Tradjenta) 5 MG TABLET 1 TAB PO DAILY DM (Reported) Pantoprazole Sodium 40 MG TABLET.DR 1 TAB PO DAILY ACID REFLUX (Reported) Prednisone 2.5 MG TABLET 1 TAB PO DAILY KIDNEY TRANSPLANT (Reported) Sirolimus (Rapamune) 1 MG TABLET 1 TAB PO DAILY KIDNEY TRANSPLANT (Reported) Tacrolimus (Prograf) 0.5 MG CAPSULE 1 CAP PO BID TRANSPLANT (Reported) Tamsulosin HCl (Flomax) 0.4 MG CAP.ER.24H 1 CAP PO DAILY PROSTATE (Reported) Current Medications: Current Medications Sig/Fei Start time Last Medication Dose Route Stop Time Status Admin Acetaminophen 650 MG Q6P PRN 11/09 0100 AC PO Amlodipine Besylate 10 MG DAILY 11/09 0900 AC 11/09 PO 0909 Aspirin 81 MG DAILY 11/09 0900 AC 11/09 PO 0907 Aspirin 325 MG ONCE ONE 11/08 2330 DC 11/08 PO 11/08 2331 2326 Aspirin 0 .STK-MED ONE 11/08 2328 DC PO Atorvastatin Calcium 20 MG 1700 11/09 1700 AC PO Clopidogrel Bisulfate 75 MG DAILY 11/09 0900 AC 11/09 PO 0909 Dextrose 25 GM ONCE ONE 11/09 0645 DC 11/09 IV 11/09 0646 0650 Dextrose/Sodium 1,000 ML Q13H 11/09 0645 AC 11/09 Chloride IV 11/09 1944 0650 Gemfibrozil 600 MG DAILY 11/09 0900 AC 11/09 PO 0908 Heparin Sodium 25,000 UNIT Q24H 11/09 0930 AC (Porcine) IV Sodium Chloride 500 ML Heparin Sodium 5,000 UNIT Q8 11/09 0600 DC 11/09 (Porcine) SC 0627 Hydrochlorothiazide 25 MG DAILY 11/09 0900 AC 11/09 PO 0908 Insulin Aspart 0 TIDAC 11/09 0800 CAN SC Insulin Detemir 26 UNITS QPM 11/09 2100 CAN SC Insulin Detemir 12 UNITS BID 11/09 0930 AC SC Insulin Detemir 22 UNITS QAM 11/09 0900 DC SC Insulin Human Regular 0 Q6 11/09 0128 AC 11/09 SC 0133 Labetalol HCl 300 MG BID 11/09 0900 AC 11/09 PO 0909 Magnesium Oxide 400 MG BID 11/09 0900 AC 11/09 PO 11/10 0901 0908 Magnesium Oxide 400 MG ONE ONE 11/09 0015 DC / PO 11/09 0016 0011 Magnesium Sulfate 1 GM ONCE ONE 11/09 0915 AC Dextrose/Water 100 ML IV 11/09 1314 Morphine Sulfate 2 MG Q4P PRN 11/09 0100 AC IV Nitroglycerin 0.4 MG Q 5 MINUTES X 3 DO.. 11/09 1015 AC SL Nitroglycerin 0 .STK-MED ONE 11/08 2359 DC TOP Nitroglycerin 1 GM ONCE ONE 11/08 2345 DC 11/08 TOP 11/08 2346 2346 Nitroglycerin 0.4 MG ONCE ONE 11/08 2330 DC 11/08 SL 11/08 2331 2326 Omeprazole 40 MG DAILY AC 11/09 0700 AC 11/09 PO 0625 Potassium Chloride 40 MEQ ONCE ONE 11/09 0900 DC 11/09 PO 11/09 0901 0908 Potassium Chloride 40 MEQ ONCE ONE 11/09 0900 CAN PO 11/09 1000 Potassium Chloride 0 .STK-MED ONE 11/09 0009 DC PO Potassium Chloride 40 MEQ ONCE ONE 11/08 2345 DC 11/09 PO 11/08 2346 0003 Sirolimus 1 MG DAILY 11/09 1005 AC PO Sodium Chloride 1,000 ML ONCE ONE 11/09 0615 DC 11/09 IV 11/09 1934 0625 Tacrolimus 0.5 MG Q12 11/09 1030 AC PO Tamsulosin HCl 0.4 MG DAILY 11/09 0900 AC 11/09 PO 0908 Review of Systems Review of Systems: No fever. No chills. No rash. No tremor. No melena. All other systems were reviewed, and were noted to be negative. Past History Travel History Traveled to [place] past 21 day No Medical History Blood Transfusion Hx: No Neurological: NONE EENT: NONE Cardiovascular: hypertension, hyperlipidemia Respiratory: NONE Gastrointestinal: NONE Hepatic: NONE Renal: KIDNEY TRANSPLANT Musculoskeletal: NONE Psychiatric: NONE Endocrine: diabetes Blood Disorders: NONE Cancer(s): NONE CLOTH DYER/Reproductive: NONE Surgical History Surgical History: non-contributory Family History Relations & Conditions If Any: FATHER Heart failure Psychosocial History Where Do You Live? Home Services at Home: None Smoking Status: Former Smoker Exam & Diagnostic Data Vital Signs and I&O Vital Signs Date Time Temp Pulse Resp B/P B/P Pulse O2 O2 Flow FiO2 Mean Ox Delivery Rate 11/09 0809 62 144/82 11/09 0909 62 144/82 11/09 0908 62 144/82 11/09 0653 97.9 62 18 144/82 96 Room Air 11/09 0206 97.9 59 18 156/76 96 Room Air 11/08 2349 64 16 162/80 97 Room Air 11/08 2325 148/84 11/088 98 Room Air 11/08 2254 96.2 67 18 176/87 97 Room Air Intake & Output 11/09 0811/09 0000 11/08 0811/08 0000 Intake Total 290 Output Total 200 Balance 90 Intake, Oral 290 Output, Urine 200 Patient 156 lb 150 lb Weight Weight Bed scale Measurement Method Physical Exam: Gen: The patient is in no acute distress HEENT: Normal nose, ears, and oropharynx. Pupils equal bilaterally. Conjunctiva normal. Neck: Supple with no JVD, no masses, and no thyromegaly Lungs: Clear to auscultation with normal respiratory effort Heart: RRR, S1, S2, no murmurs. Trace peripheral edema, 2+ pulses in the lower extremities bilaterally Abdomen: Soft, nontender, no masses. No hepatomegaly. No splenomegaly Extremities: No clubbing or cyanosis. Normal muscle strength in the upper and lower extremities Skin: Normal skin turgor with no skin ulcers or lesions noted. Neuro: Cranial nerves intact. Sensation intact Psych: Alert and oriented x 3 with appropriate affect Labs/Michel Results: Laboratory Tests 11/09 11/09 0605 0600 Chemistry Sodium (137 - 145 mmol/L) 139 Cancelled Potassium (3.5 - 5.1 mmol/L) 3.1 L Cancelled Chloride (98 - 107 mmol/L) 102 Cancelled Carbon Dioxide (22 - 30 mmol/L) 25 Cancelled Anion Gap (5 - 16) 11 Cancelled BUN (9 - 20 mg/dL) 28 H Cancelled Creatinine (0.7 - 1.2 mg/dL) 1.3 H Cancelled Estimated GFR (>60 ml/min) 56 L BUN/Creatinine Ratio (7 - 25 %) 21.5 Cancelled Glucose (65 - 99 mg/dL) 216 H Magnesium (1.6 - 2.3 mg/dL) 1.3 L Troponin I (<0.11 ng/ml) 0.15 *H Triglycerides (<150 mg/dL) 180 H Cholesterol (< 200 MG/DL) 177 LDL Cholesterol, Calc (65 - 129 mg/dL) 91 HDL Cholesterol (40 - 60 mg/dL) 50 Cholesterol/HDL Ratio (0.00 - 4.88 %) 4 Hematology CBC w Diff NO MAN DIFF REQ Cancelled WBC (4.8 - 10.8 /CUMM) 8.2 Cancelled RBC (4.70 - 6.10 /CUMM) 3.94 L Cancelled Hgb (14.0 - 18.0 G/DL) 10.4 L Cancelled Hct (42 - 52 %) 31.8 L Cancelled MCV (80.0 - 94.0 FL) 80.7 Cancelled MCH (27.0 - 31.0 PG) 26.3 L Cancelled MCHC (33.0 - 37.0 G/DL) 32.6 L Cancelled RDW (11.5 - 14.5 %) 15.4 H Cancelled Plt Count (130 - 400 /CUMM) 184 Cancelled MPV (7.4 - 10.4 FL) 10.8 H Cancelled Gran % (42.2 - 75.2 %) 54.2 Lymphocytes % (20.5 - 51.1 %) 30.2 Monocytes % (1.7 - 9.3 %) 12.1 H Eosinophils % (0 - 5 %) 3.1 Basophils % (0.0 - 2.0 %) 0.4 Absolute Granulocytes (1.4 - 6.5 /CUMM) 4.4 Absolute Lymphocytes (1.2 - 3.4 /CUMM) 2.5 Absolute Monocytes (0.10 - 0.60 /CUMM) 1.0 H Absolute Eosinophils (0.0 - 0.7 /CUMM) 0.2 Absolute Basophils (0.0 - 0.2 /CUMM) 0 05/02 2305 Chemistry Sodium (137 - 145 mmol/L) 135 L Potassium (3.5 - 5.1 mmol/L) 3.1 L Chloride (98 - 107 mmol/L) 98 Carbon Dioxide (22 - 30 mmol/L) 24 Anion Gap (5 - 16) 12 BUN (9 - 20 mg/dL) 35 H Creatinine (0.7 - 1.2 mg/dL) 1.5 H Estimated GFR (>60 ml/min) 47 L BUN/Creatinine Ratio (7 - 25 %) 23.3 Glucose (65 - 99 mg/dL) 301 H Hemoglobin A1c (4.2 - 5.8 %) 7.9 H Calcium (8.4 - 10.2 mg/dL) 9.1 Phosphorus (2.5 - 4.5 mg/dL) 3.4 Magnesium (1.6 - 2.3 mg/dL) 1.3 L Total Bilirubin (0.2 - 1.3 mg/dL) 0.5 AST (17 - 59 U/L) 28 ALT (21 - 72 U/L) 22 Alkaline Phosphatase (< 127 U/L) 96 Troponin I (<0.11 ng/ml) 0.02 [id number] Pept (<125 pg/mL) 169 H Total Protein (6.3 - 8.2 g/dL) 6.8 Albumin (3.5 - 5.0 g/dL) 4.0 Globulin (1.9 - 4.2 gm/dL) 2.8 Albumin/Globulin Ratio (1.1 - 2.2 %) 1.4 TSH (0.270 - 4.200 uIU/mL) 6.820 H Free T4 (0.78 - 2.44 ng/dL) 0.84 Hematology CBC w Diff NO MAN DIFF REQ WBC (4.8 - 10.8 /CUMM) 8.5 RBC (4.70 - 6.10 /CUMM) 4.43 L Hgb (14.0 - 18.0 G/DL) 11.5 L Hct (42 - 52 %) 35.2 L MCV (80.0 - 94.0 FL) 79.5 L MCH (27.0 - 31.0 PG) 25.9 L MCHC (33.0 - 37.0 G/DL) 32.6 L RDW (11.5 - 14.5 %) 15.8 H Plt Count (130 - 400 /CUMM) 213 MPV (7.4 - 10.4 FL) 10.5 H Gran % (42.2 - 75.2 %) 54.7 Lymphocytes % (20.5 - 51.1 %) 32.0 Monocytes % (1.7 - 9.3 %) 10.7 H Eosinophils % (0 - 5 %) 2.3 Basophils % (0.0 - 2.0 %) 0.3 Absolute Granulocytes (1.4 - 6.5 /CUMM) 4.6 Absolute Lymphocytes (1.2 - 3.4 /CUMM) 2.7 Absolute Monocytes (0.10 - 0.60 /CUMM) 0.9 H Absolute Eosinophils (0.0 - 0.7 /CUMM) 0.2 Absolute Basophils (0.0 - 0.2 /CUMM) 0 Diagnostic Data EKG Results Normal sinus rhythm at 60 with intraventricular conduction delay, left ventricular hypertrophy, and anterior ST-T abnormality, possibly secondary to ischemia versus LVH with repolarization abnormal CXR Results Cardiac leads overlie the chest. The patient is rotated to the left. The lungs are well expanded. There is no focal consolidation, edema, or effusion. No pneumothorax. The cardiomediastinal silhouette is within normal limits of size. No acute osseous abnormality. Assessment/Plan Assessment/Plan The patient is a 62-year-old male with history of CAD, status post RCA stent in 2008, diabetes mellitus, renal transplant presenting with chest pain and mild troponin elevation with ST depression on EKG. The clinical presentation is consistent with non-ST elevation myocardial infarction. He is currently having recurrent chest pain. Recommendations: * Would give sublingual nitroglycerin until pain-free, and then start nitroglycerin paste. * Continue Plavix, and start aspirin * Increase atorvastatin to 40 mg daily * Continue labetalol * Transfer to [facility] for cardiac catheterization and possible percutaneous intervention * Echocardiogram Consult Acknowledgment - Thank you for your consult request.
[2017-11-09] MEDS ORDERED: HEPARIN-NS25000 UNIT IV (10:36)
[2017-11-09] MEDS ORDERED: ASPIRIN81 M4 PO (10:36)
--- NOTE | 2017-11-09 10:38 | Patient Discharge Instructions ---
Discharge Instructions General Discharge Information Special Instructions: You are being transferred to another hospital for further evaluation of your chest pain with cardiac catheterization. Follow the recommendations of your providers at that hospital. Acute Coronary Syndrome Inclusion Criteria At DC or during hospital stay patient has or had the following: ACS DIAGNOSIS Yes Discharge Core Measures Meds if any: Prescribed or Continued at Discharge GIN/ARB if EF <40% No Aspirin Yes Beta-Rebekah Yes Statin Yes Meds if any: NOT Prescribed or Continued at Discharge No GIN/ARB d/t Normal EF Congestive Heart Failure Inclusion Criteria At DC or during hospital stay patient has or had the following: CHF DIAGNOSIS No Discharge Core Measures Meds if any: Prescribed or Continued at Discharge Meds if any: NOT Prescribed or Continued at Discharge Cerebrovascular accident Inclusion Criteria At DC or during hospital stay patient has or had the following: CVA/TIA Diagnosis No Discharge Core Measures Meds if any: Prescribed or Continued at Discharge Meds if any: NOT Prescribed or Continued at Discharge Venous thromboembolism Inclusion Criteria VTE Diagnosis No VTE Type NONE VTE Confirmed by (Test) NONE Discharge Core Measures - Per Current guidelines, there needs to be overlap - treatment for the first 5 days of Warfarin therapy. - If discharged on Warfarin prior to 5 days of - overlap therapy, the patient will need to be - assessed for post discharge needs including - *Post discharge parental anticoagulation - *Warfarin and/or parental anticoagulation education - *Follow up date to check INR post discharge At least 5 days overlap therapy as Inpatient No Meds if any: Prescribed or Continued at Discharge Note: Overlap Therapy is Warfarin and Anticoagulant Meds if any: NOT Prescribed or Continued at Discharge
--- NOTE | 2017-11-09 12:59 | ECHOCARDIOGRAM REPORT ---
WALDEMAR RAYGOZA Age: 62 : 1955 Gender: M Exam Date: 11/09/2017 10:28 Exam Location: [address] Ht (in): 66 Wt (lb): 150 BSA: 1.79 BP: 144 / 82 Ordering Physician: Sadiq Bautista MD Referring Physician: Sadiq Bautista MD Technologist: Eriberto Thompson [facility] Room Number: 189-1 Indications: Chest Pain Rhythm: Sinus Technical Quality: Good FINDINGS Left Ventricle Normal global left ventricular size, wall thickness, systolic function with no obvious regional wall motion abnormalities. Normal left ventricular ejection fraction estimated at 65-70%. Right Ventricle Normal right ventricular size and function. Right Atrium Normal right atrial size. Left Atrium Mild to moderate left atrial dilatation. Mitral Valve Mitral valve thickened. Trace mitral regurgitation. Aortic Valve Trileaflet aortic valve. Diffuse thickening (sclerosis) of the aortic valve cusps without reduced excursion. No aortic stenosis. No aortic regurgitation. Tricuspid Valve Tricuspid valve not well visualized, grossly normal. Trace tricuspid regurgitation. Pulmonic Valve Structurally normal pulmonic valve. Trace pulmonic regurgitation. Pericardium Small pericardial effusion. Great Vessels Normal size aortic root and proximal ascending aorta. CONCLUSIONS 1. Mild aortic sclerosis is present with no valvular stenosis or insufficiency. 2. Mitral leaflet thickening is present with minimal mitral insuffciiency and mild to moderate left atrial enlargement. 3. A very small pericardial effusion is present. 4. The left ventricualr chamber size and systolic function are normal with no resting wall motion abnormalities. 5. Minimal tricuspid and pulmonic insufficiency are present with no evidence of pulmonary hypertension. Shy Ramirez M.D. (Electronically Signed) Final Date: 09 Nov 2017 12:58 MEASUREMENTS (Male / Female) Normal Values 2D ECHO LV Diastolic Diameter PLAX 5.0 cm 4.2 - 5.9 / 3.9 - 5.3 cm LV Systolic Diameter PLAX 2.9 cm 2.1 - 4.0 cm LV Fractional Shortening PLAX 42.0 % 25 - 46 % LV Ejection Fraction 2D Teich 72.8 % IVS Diastolic Thickness 1.0 cm LVPW Diastolic Thickness 1.0 cm LV Relative Wall Thickness 0.4 RV Internal Dim ED PLAX 3.2 cm 1.9 - 3.8 cm LVOT Diameter 2.0 cm Aortic Root Diameter 2.9 cm LA Systolic Diameter LX 4.3 cm 3.0 - 4.0 / 2.7 - 3.8 cm LA Volume 72.0 cm 18 - 58 / 22 - 52 cm Ascending Aorta Diameter 3.4 cm DOPPLER AV Peak Velocity 127.0 cm/s AV Peak Gradient 6.5 mmHg AV Mean Velocity 84.6 cm/s AV Mean Gradient 3.0 mmHg AV Velocity Time Integral 28.3 cm LVOT Peak Velocity 94.7 cm/s LVOT Peak Gradient 3.6 mmHg LVOT Mean Velocity 61.9 cm/s LVOT Mean Gradient 2.0 mmHg LVOT Velocity Time Integral 24.7 cm LVOT Stroke Volume 77.6 cm AV Area Cont Eq vti 2.7 cm AV Area Cont Eq pk 2.3 cm MV Peak Velocity 105.0 cm/s MV Peak Gradient 4.4 mmHg MV Mean Velocity 54.0 cm/s MV Mean Gradient 1.0 mmHg Mitral E Point Velocity 63.4 cm/s Mitral A Point Velocity 74.0 cm/s Mitral E to A Ratio 0.9 MV PHT Velocity 86.9 cm/s MV Deceleration [place] 392.0 cm/s MV Pressure Half Time 66.5 ms MV Area PHT 3.3 cm MV Deceleration Time 211.0 ms PV Peak Velocity 97.9 cm/s PV Peak Gradient 3.8 mmHg PV Mean Velocity 75.0 cm/s PV Mean Gradient 3.0 mmHg PV Velocity Time Integral 26.9 cm LV E' Lateral Velocity 7.3 cm/s Mitral E to LV E' Lateral Ratio 8.7 LV E' Septal Velocity 7.3 cm/s Mitral E to LV E' Septal Ratio 8.7
== END 2017-11-09 12:45 | disposition short-term general hospital (02) | DRG 302 ==
LOC: ERH 22:43 → ERHI 11-09 00:13 → ENRESERV 11-09 01:31 → 1NO 11-09 01:54 → ENPENDDIS 11-09 11:58 → 1NO 11-09 12:45
PROVIDERS: Emergency Medicine; Internal Medicine Hematology & Oncology
DX: I25.110 Atherosclerotic heart disease of native coronary artery with unstable angina pectoris (principal); N18.6 End stage renal disease; I12.0 Hypertensive chronic kidney disease with stage 5 chronic kidney disease or end stage renal disease; I13.11 Hypertensive heart and chronic kidney disease without heart failure, with stage 5 chronic kidney disease, or end stage renal disease; Z94.0 Kidney transplant status; E11.22 Type 2 diabetes mellitus with diabetic chronic kidney disease; I25.2 Old myocardial infarction; E78.5 Hyperlipidemia, unspecified; K21.9 Gastro-esophageal reflux disease without esophagitis; Z79.4 Long term (current) use of insulin; Z79.84 Long term (current) use of oral hypoglycemic drugs; M10.9 Gout, unspecified; N40.0 Benign prostatic hyperplasia without lower urinary tract symptoms; Z95.5 Presence of coronary angioplasty implant and graft; Z79.52 Long term (current) use of systemic steroids; Z79.01 Long term (current) use of anticoagulants; E87.6 Hypokalemia; E83.42 Hypomagnesemia; Z87.891 Personal history of nicotine dependence
CPT/HCPCS: 1NSP; 36592; 71045; 82436; 93005; 93010; 93306; 99291; J1644; J1815; J3490; J7042